=== PATIENT | male | born 1955 | race Caucasian/White ===

== ENCOUNTER 2017-04-29 08:57 | Emergency (ER) | payer OTHER ==
--- NOTE | 2017-04-29 09:36 | EDPHY ---
H & P Stated Complaint: Sent from urgent care for eval BP,fatigue;both eyes "feel tired" Time Seen by Provider: 04/29/17 09:35 HPI/ROS: HPI: This is a 62-year-old male who presents with Chief Complaint: Sent from urgent care for eval BP,fatigue;both eyes "feel tired " Location: Eyes Quality: Feel tired Duration: Several days Signs and Symptoms: no shortness of breath at rest, no shortness of breath on exertion, + dry, intermittent cough, no chest pain, no palpitations, no lower extremity edema, no wheezing, no orthopnea, no paroxysmal nocturnal dyspnea, no fever, no injury/trauma, no hemoptysis, no carpal pedal spasms Timing: Intermittent Severity: Mild Context: Patient reports that he was diagnosed with a pulmonary embolism and DVTs approximately 5 years ago secondary to long distance travel and completed 6 months of anticoagulation therapy. He presents today with 2 day history of left greater than right visual floaters and bilateral eye pressure as well as "feeling tired." Patient to see marketing professional yesterday and had complete eye examination including intra-ocular pressure and was diagnosed with vitreous floaters. Retinal detachment was ruled out at that time. Blood pressure was noted to be elevated with systolic 150 to 160s which was unusual for patient as he has no history of hypertension. Patient denies any lower extremity edema/ chest pain. He does report that he has had some sinus pressure and postnasal drainage over the last 1-2 weeks with a "tickly sensation in his throat." and patient are mainly concerned that he may have reoccurrence of his pulmonary embolism. No prior cardiac history. Does complain with generalized fatigue over the last 1-2 weeks. Denies any fever/sore throat/swollen glands/abdominal pain/nausea/vomiting. Patient reports that he has gluten free; did not really eat this morning. No history of diabetes. Modifying Factors: None Comment: ROS: see HPI Constitutional: No fever, no chills, no weight loss Eyes: No blurred vision Respiratory: No shortness of breath, no cough Cardiovascular: No chest pain, no palpitations, no lower extremity edema Gastrointestinal: No nausea, no vomiting, no diarrhea Genitourinary: No dysuria Extremities: No myalgias Neurologic: No weakness, no numbness Skin: No rashes Hematologic: No bruising, no bleeding MEDICAL/SURGICAL/SOCIAL HISTORY: Medical history: Pulmonary embolism and DVT Surgical history: Denies Social history: . Employed CONSTITUTIONAL: Extremely well-appearing adult male, appears younger than stated age, awake and alert, no obvious distress HEENT: Atraumatic and normocephalic, PERRL, EOMI. Tympanic membranes clear. Oropharynx clear, no exudate and moist pink mucosa. Nares show mucosa edema and green dried discharge. Airway patent. No lymphadenopathy. No meningismus. No carotid bruits appreciated. Cardiovascular: Normal S1/S2, regular rate, regular rhythm, without murmur rub or gallop. PULMONARY/CHEST: Symmetrical and nontender. Clear to auscultation bilaterally. Good air movement. No accessory muscle usage. ABDOMEN: Soft, nondistended, nontender, no rebound, no guarding, no peritoneal signs, no masses or organomegaly. No CVAT. EXTREMITIES: 2/2 pulses, strength 5/5, no deformities, no clubbing, no cyanosis or edema. No palpable cords. No varicosities. Negative Homans sign. NEUROLOGICAL: no focal neuro deficits. GCS 15. Cranial nerves 2-12 grossly intact. SKIN: Warm and dry, no erythema. no rash. Good capillary refill. Source: Patient, Family () Exam Limitations: No limitations - Personal History Current Tetanus Diphtheria and Acellular Pertussis (TDAP): Yes Tetanus Vaccine Date: 2006 - Medical/Surgical History Hx Asthma: No Hx Chronic Respiratory Disease: No Hx Diabetes: No Hx Cardiac Disease: No Hx Renal Disease: No Hx Cirrhosis: No Hx Alcoholism: No Hx HIV/AIDS: No Hx Splenectomy or Spleen Trauma: No Other PMH: PULM. EMB - Social History Smoking Status: Never smoked Constitutional: Initial Vital Signs Temperature (C) 36.7 C 04/29/17 09:05 Heart Rate 78 04/29/17 09:05 Respiratory Rate 16 04/29/17 09:05 Blood Pressure 148/83 H 04/29/17 09:05 O2 Sat (%) 98 04/29/17 09:05 O2 Delivery Mode Room Air Allergies/Adverse Reactions: No Known Allergies Allergy (Verified 04/29/17 09:07) Home Medications: Medication Instructions Recorded NK [No Known Home Meds] 04/29/17 Medical Decision Making - Diagnostics EKG Interpretation: 12 lead EKG: Indication: Hypertension Rhythm: Normal sinus rhythm, rate 74 beats per minute [place]: Normal Intervals: Normal QRS: Normal ST segments: Normal INTERPRETATION: No acute ischemic changes The 12 lead EKG was interpreted by myself and with attending. ED Course/Re-evaluation: Blood pressure 148/83 upon arrival and no systemic signs. EKG and laboratory workup ordered. EKG my read sinus rhythm with no acute ischemic changes or arrhythmia Discussed obtaining head CT scan but no neurological deficits at this time and patient/ politely declined. They are more concerned with evaluation for pulmonary embolism. I suspect that patient is having some sinus disease that is exacerbating his symptoms. No antibiotics are indicated at this time. 1025: Serum glucose 61 all other labs reviewed and unremarkable. Including no signs of VTE/ACS. Given meal tray and orange juice. Nondiabetic. This patient was seen under the supervision of my secondary supervising physician. I evaluated care for this patient independently. Discussed this patient with Dr. Kathleen who did not see the patient. Differential Diagnosis: Chest pain including but not limited to myocardial ischemia, pulmonary embolus, chest wall pain, pleural inflammation and pulmonary infectious causes. - Data Points Laboratory Results: Laboratory Results 04/29/17 10:00 04/29/17 10:00 04/29/17 04/29/17 04/29/17 10:00 10:00 10:00 WBC 4.12 10^3/uL 10^3/uL (3.80-9.50) RBC 4.81 10^6/uL 10^6/uL (4.40-6.38) Hgb 14.7 g/dL g/dL (13.7-17.5) Hct 43.2 % % (40.0-51.0) MCV 89.8 fL fL (81.5-99.8) MCH 30.6 pg pg (27.9-34.1) MCHC 34.0 g/dL g/dL (32.4-36.7) RDW 12.8 % % (11.5-15.2) Plt Count 209 10^3/uL 10^3/uL (150-400) MPV 8.9 fL fL (8.7-11.7) Neut % (Auto) 60.0 % % (39.3-74.2) Lymph % (Auto) 28.6 % % (15.0-45.0) [place] % (Auto) 8.7 % % (4.5-13.0) Eos % (Auto) 1.5 % % (0.6-7.6) Baso % (Auto) 0.2 % L % (0.3-1.7) Nucleat RBC Rel Count 0.0 % % (0.0-0.2) Absolute Neuts (auto) 2.47 10^3/uL 10^3/uL (1.70-6.50) Absolute Lymphs (auto) 1.18 10^3/uL 10^3/uL (1.00-3.00) Absolute Monos (auto) 0.36 10^3/uL 10^3/uL (0.30-0.80) Absolute Eos (auto) 0.06 10^3/uL 10^3/uL (0.03-0.40) Absolute Basos (auto) 0.01 10^3/uL L 10^3/uL (0.02-0.10) Absolute Nucleated RBC 0.00 10^3/uL 10^3/uL (0-0.01) Immature Gran % 1.0 % % (0.0-1.1) Immature Gran # 0.04 10^3/uL 10^3/uL (0.00-0.10) PT 12.8 SEC SEC (12.0-15.0) INR 0.94 (0.83-1.16) APTT 26.2 SEC SEC (23.0-38.0) D-Dimer 0.40 ug/mLFEU ug/mLFEU (0.00-0.50) Sodium 144 mEq/L mEq/L (135-145) Potassium 4.4 mEq/L mEq/L (3.5-5.2) Chloride 107 mEq/L mEq/L (97-110) Carbon Dioxide 26 mEq/l mEq/l (22-31) Anion Gap 11 mEq/L mEq/L (8-16) BUN 18 mg/dL mg/dL (7-23) Creatinine 0.8 mg/dL mg/dL (0.7-1.3) Estimated GFR > 60 Glucose 61 mg/dL L mg/dL (70-100) Calcium 8.9 mg/dL mg/dL (8.5-10.4) Magnesium 2.0 mg/dL mg/dL (1.6-2.3) Total Bilirubin 0.6 mg/dL mg/dL (0.1-1.4) Conjugated Bilirubin 0.3 mg/dL mg/dL (0.0-0.5) Unconjugated Bilirubin 0.3 mg/dL mg/dL (0.0-1.1) AST 20 IU/L IU/L (17-59) ALT 37 IU/L IU/L (21-72) Alkaline Phosphatase 45 IU/L IU/L (38-126) Troponin I < 0.012 ng/mL ng/mL (0.000-0.034) Total Protein 6.6 g/dL g/dL (6.3-8.2) Albumin 3.9 g/dL g/dL (3.5-5.0) Departure - Departure Disposition: Home, Routine, Self-Care Clinical Impression: Elevated BP without diagnosis of hypertension, Hypoglycemia, unspecified Condition: Good Instructions: Non-diabetic Hypoglycemia (ED) Additional Instructions: Laboratory findings today are grossly unremarkable including normal D-dimer and troponin. Please see approximately 5-6 small meals throughout the day order to keep your serum glucose at an appropriate level. Follow-up with your primary care provider in 1-2 weeks to monitor your blood pressure. Take daily blood pressure readings and keep a blood pressure journal. Follow-up with your marketing professional as directed. Return to the ER immediately if you experience new, continued or worsened chest pain, chest pain that radiates, chest pain accompanied by exertion or associated with shortness of breath, sweating, nausea, dizziness, back pain, or any other symptoms that concern you. Referrals: Kade Cronin, [Primary Care Provider] - As per Instructions
--- NOTE | 2017-04-29 10:11 | CPEKG ---
Heart Rate: 74 RR Interval: 811 P-R Interval: 180 QRSD Interval: 76 QT Interval: 392 QTC Interval: 435 P [place]: 39 QRS [place]: -5 T Wave [place]: 22 EKG Severity - NORMAL ECG - EKG Impression: SINUS RHYTHM Electronically Signed By: Trevor Kathleen 29-Apr-2017 10:12:19
[2017-04-29 10:14] LABS: PLATELET COUNT 209 10^3/uL (150-400)
[2017-04-29 10:21] LABS: INR 0.94 (0.83-1.16); PROTIME(PATIENT) 12.8 SEC (12.0-15.0)
[2017-04-29 11:11] VITALS: BP 131/87; PULSE 74; RESP 18; TEMP 98.2; O2SAT 99
== END 2017-04-29 11:11 | disposition home or self-care (01) ==
DX: R03.0 Elevated blood-pressure reading, without diagnosis of hypertension (principal); E16.2 Hypoglycemia, unspecified